=== PATIENT | female | born 1980 | race Caucasian/White ===

== ENCOUNTER 2017-12-16 12:17 | Emergency (ER) | payer OTHER ==
[2017-12-16] MEDS ORDERED: PROVENTIL 2.5 MG/3 ML NEB IH ONE ×2 (12:43→12:53)
--- NOTE | 2017-12-16 12:50 | ERPHSYRPT ---
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 is 11 wks and states she has been weak and run down this . denies any pain Triage Nursing Assessment: ambulated to room per self. skin w/d, color pale, resp only slightly labored after walking to room. states she does feel better now but wants to get checked out since she is . 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 She denies chest pain, cough, coughing spell, fever, chills, other complaints, no abdominal pain, cramps, or bleeding, no calf, pain, swelling, edema. She has a history of childhood asthma, did not require recent treatment, she has not been taking any medications, she is nauseated, vomited once this morning, she attributed it to her . Timing/Duration: hour(s) (2) Activities at Onset: none Severity of Dyspnea-Max: mild Severity of Dyspnea-Current: mild Possible Cause: no prior episodes Modifying Factors: Improves With: nothing Associated Symptoms: denies symptoms Allergies/Adverse Reactions: No Known Drug Allergies Allergy (Unverified 11/22/14 10:27) Home Medications: Norgestimate-Ethinyl Estradiol [Ortho Tri-Cyclen Lo] 1 each PO DAILY 10/08/11 [ History] Hx Tetanus, Diphtheria Vaccination/Date Given: No Hx Influenza Vaccination/Date Given: No Hx Pneumococcal Vaccination/Date Given: No - Review of Systems Constitutional: No Symptoms Respiratory: Dyspnea, No Cough Cardiac: No Chest Pain, No Edema All Other Systems: Reviewed and Negative - Past Medical History Pertinent Past Medical History: Yes ENT History: Other - Past Surgical History Past Surgical History: Yes Female Surgical History: Section Other Surgical History: TONSILLECTOMY. BOTTOM DENTURES (TOOTH EXTRACTION) - Social History Smoking Status: Never smoker Exposure to second hand smoke: No Drug Use: none Patient Lives Alone: No - Female History Hx Now: Yes (11 weeks) - Nursing Vital Signs Nursing Vital Signs: Initial Vital Signs Temperature 98 F 12/16/17 12:24 Pulse Rate 71 12/16/17 12:24 Respiratory Rate 20 12/16/17 12:24 Blood Pressure 89/70 12/16/17 12:24 O2 Sat by Pulse Oximetry 96 12/16/17 12:24 Pain Scale Pain Intensity 0 - Physical Exam General Appearance: no apparent distress Eye Exam: eyes nml inspection Ears, Nose, Throat Exam: normal ENT inspection, normal pharynx Neck Exam: normal inspection, non-tender, supple, No carotid bruit, No JVD Respiratory Exam: normal breath sounds, lungs clear, airway intact, No chest tenderness Cardiovascular/Chest Exam: normal heart sounds, regular rate/rhythm, normal peripheral pulses, No murmur, No edema, No JVD Abdominal/Gastrointestinal Exam: soft, normal bowel sounds, No tenderness, No distention, No mass, No guarding, No rebound Extremity Exam: non-tender, no calf tenderness, no pedal edema, No oracio's sign Peripheral Pulses Exam: dorsalis-pedis (R): 3+, dorsalis-pedis (L): 3+ Neurologic Exam: alert, oriented x 3, normal mood/affect Skin Exam: normal color, warm, dry, No rash Lymphatic Exam: No adenopathy SpO2 Interpretation: normal SpO2: 96 Oxygen Delivery: Room Air - Course Nursing assessment & vital signs reviewed: Yes EKG Interpreted by Me: RATE (71/min), NORMAL AXIS, NORMAL INTERVALS, Right Bundle Branch Block (incomplete), Non-specific ST Changes, Other (14:49PM: normal Ek/min, NSR) - Radiology Exams Chest X-ray Interpretation: Interpreted by me, Negative Ordered Tests: Active Orders 24 hr Category Date Time Status EKG-ER Only STAT Care 12/16/17 13:14 Active EKG-ER Only STAT Care 12/16/17 14:40 Active Orthostatic Vital Signs STAT Care 12/16/17 15:55 Ordered CHEST 1 VIEW (PORTABLE) Stat Exams 12/16/17 13:32 Taken CBC W DIFF Stat Lab 12/16/17 12:45 Completed CMP Stat Lab 12/16/17 12:45 Completed D-DIMER QUANTITATION Stat Lab 12/16/17 12:45 Completed HCG, Quantitative (Inhouse) Stat Lab 12/16/17 12:45 Completed MAGNESIUM Stat Lab 12/16/17 12:45 Completed NT PRO BNP Stat Lab 12/16/17 12:45 Completed PROTIME WITH INR Stat Lab 12/16/17 12:45 Completed TROPONIN Q3H Lab 12/16/17 12:45 Completed TROPONIN Q3H Lab 12/16/17 15:08 Received TROPONIN Q3H Lab 12/16/17 18:45 Ordered TROPONIN Q3H Lab 12/16/17 21:45 Ordered TROPONIN Q3H Lab 12/17/17 00:45 Ordered TSH, 3RD Generation Routine Lab 12/16/17 12:45 Completed Respiratory Nebulizer STAT RT 12/16/17 12:44 Active Medication Summary Discontinued Medications Generic Name Dose Route Start Last Admin Trade Name Freq PRN Reason Stop Dose Admin Albuterol Sulfate 2.5 mg 12/16/17 12:43 12/16/17 12:55 Proventil 2.5 Mg/3 Ml Neb IH 12/16/17 12:44 2.5 mg STAT ONE Administration Albuterol Sulfate Confirm 12/16/17 12:53 Proventil 2.5 Mg/3 Ml Neb Administered 12/16/17 12:54 Dose 2.5 mg IH .STK-MED ONE Lab/Rad Data: Laboratory Result Diagrams 12/16/17 12:45 12/16/17 12:45 Laboratory Results 12/16/17 12/16/17 12/16/17 Range/Units 12:45 12:45 12:45 WBC (4.0-10.5) K/mm3 RBC (4.1-5.4) M/mm3 Hgb (12.0-16.0) gm/dl Hct (35-47) % MCV (78-100) fl MCH (26-32) pg MCHC (32-36) g/dl RDW (11.5-14.0) % Plt Count (150-450) K/mm3 MPV (6-9.5) fl Gran % (36.0-66.0) % Eos # (Auto) (0-0.5) Absolute Lymphs (auto) (1.0-4.6) Absolute Monos (auto) (0.0-1.3) Lymphocytes % (24.0-44.0) % Monocytes % (0.0-12.0) % Eosinophils % (0.00-5.0) % Basophils % (0.0-0.4) % Absolute Granulocytes (1.4-6.9) Basophils # (0-0.4) PT 10.8 (9.95-12.35) SECONDS INR 0.93 (0.8-3.0) D-Dimer 475 (215-500) ng/mL Sodium 135 L (137-145) mmol/L Potassium 4.0 (3.5-5.1) mmol/L Chloride 102 (98-107) mmol/L Carbon Dioxide 24 (22-30) mmol/L Anion Gap 12.6 (5-15) MEQ/L BUN 11 (7-17) mg/dL Creatinine 0.56 (0.52-1.04) mg/dL Estimated GFR > 60.0 ML/MIN Glucose 116 H (74-106) mg/dL Calcium 9.5 (8.4-10.2) mg/dL Magnesium 1.7 (1.6-2.3) mg/dL Total Bilirubin 0.30 (0.2-1.3) mg/dL AST 18 (14-36) U/L ALT 11 (0-35) U/L Alkaline Phosphatase 50 (38-126) U/L Troponin I < 0.012 (0.000-0.034) ng/mL NT-Pro-B Natriuret Pep 218 (0-450) pg/mL Serum Total Protein 7.2 (6.3-8.2) g/dL Albumin 4.1 (3.5-5.0) g/dL TSH 3rd Generation 1.390 (0.47-4.68) mIU/L Beta HCG, Quant [id number] mIU/ml 12/16/17 Range/Units 12:45 WBC 11.4 H (4.0-10.5) K/mm3 RBC 3.98 L (4.1-5.4) M/mm3 Hgb 12.6 (12.0-16.0) gm/dl Hct 36.4 (35-47) % MCV 91.5 (78-100) fl MCH 31.6 (26-32) pg MCHC 34.6 (32-36) g/dl RDW 12.5 (11.5-14.0) % Plt Count 282 (150-450) K/mm3 MPV 9.1 (6-9.5) fl Gran % 73.6 H (36.0-66.0) % Eos # (Auto) 0.05 (0-0.5) Absolute Lymphs (auto) 2.18 (1.0-4.6) Absolute Monos (auto) 0.76 (0.0-1.3) Lymphocytes % 19.2 L (24.0-44.0) % Monocytes % 6.7 (0.0-12.0) % Eosinophils % 0.4 (0.00-5.0) % Basophils % 0.1 (0.0-0.4) % Absolute Granulocytes 8.38 H (1.4-6.9) Basophils # 0.01 (0-0.4) PT (9.95-12.35) SECONDS INR (0.8-3.0) D-Dimer (215-500) ng/mL Sodium (137-145) mmol/L Potassium (3.5-5.1) mmol/L Chloride (98-107) mmol/L Carbon Dioxide (22-30) mmol/L Anion Gap (5-15) MEQ/L BUN (7-17) mg/dL Creatinine (0.52-1.04) mg/dL Estimated GFR ML/MIN Glucose (74-106) mg/dL Calcium (8.4-10.2) mg/dL Magnesium (1.6-2.3) mg/dL Total Bilirubin (0.2-1.3) mg/dL AST (14-36) U/L ALT (0-35) U/L Alkaline Phosphatase (38-126) U/L Troponin I (0.000-0.034) ng/mL NT-Pro-B Natriuret Pep (0-450) pg/mL Serum Total Protein (6.3-8.2) g/dL Albumin (3.5-5.0) g/dL TSH 3rd Generation (0.47-4.68) mIU/L Beta HCG, Quant mIU/ml - Progress Progress: improved Air Movement: good Progress Note: 12/16/17 15:56 She feels comfortable lying, still c/o dyspnea on exertion, Albuterol did not make any difference. She remains afebrile, denies chest pain, tightness or pressure, no nausea, dizziness, and not orthostatic, stable. I called Dr Porter, discussed her case in details, he agreed with our plan to discharge her to follow up with Dr Ventura next week, to initiate outpatient workup. I also advised her to return immediately if any changes, chest pain, resting dyspnea, dizziness, weakness, or severe vomiting. Blood Culture(s) Obtained: No Antibiotics given: No Discussed with Dr.: May Will see patient in: office Counseled pt/family regarding: lab results, diagnosis, need for follow-up, rad results - Departure Time of Disposition: 15:59 Departure Disposition: Home Clinical Impression: Dyspnea, unspecified Qualifiers: Dyspnea type: dyspnea on exertion Qualified Code(s): R06.09 - Other forms of dyspnea Condition: Stable Critical Care Time: No Referrals: HEAVEN VENTURA MD [Primary Care Provider] - Instructions: Shortness of Breath (Dyspnea) (DC) Additional Instructions: Rest x 2-3 days, and follow up with your physician next week, also keep appointment with your smoke tester next ! Return if chest pain, severe dizziness, vomiting, or resting shortness of breath!
[2017-12-16 13:05] LABS: BASOPHIL % 0.1 % (0.0-0.4); Basophil (Absolute #) 0.01 (0-0.4); Eosinophil % 0.4 % (0.00-5.0); Eosinophil (Absolute #) 0.05 (0-0.5); Granulocyte Absolute (ANC) 8.38 (1.4-6.9); Granulocytes % 73.6 % (36.0-66.0); Hematocrit 36.4 % (35-47); Hemoglobin 12.6 gm/dl (12.0-16.0); Lymphocyte (Absolute #) 2.18 (1.0-4.6); Lymphocytes % 19.2 % (24.0-44.0); Mean Cell Volume 91.5 fl (78-100); Mean Corpuscular Hgb Concent. 34.6 g/dl (32-36); Mean Platelet Volume 9.1 fl (6-9.5); Monocyte (Absolute #) 0.76 (0.0-1.3); Monocytes % 6.7 % (0.0-12.0); Platelet Count 282 K/mm3 (150-450); Red Blood Count 3.98 M/mm3 (4.1-5.4); Red Cell Distribution Width 12.5 % (11.5-14.0); White Blood Count 11.4 K/mm3 (4.0-10.5)
[2017-12-16 13:13] LABS: INR 0.93 (0.8-3.0)
[2017-12-16 13:14] LABS: Mean Corpuscular Hemoglobin 31.6 pg (26-32)
[2017-12-16 13:20] LABS: ALBUMIN 4.1 g/dL (3.5-5.0); ALKALINE PHOSPHATASE 50 U/L (38-126); ANION GAP 12.6 MEQ/L (5-15); BLOOD UREA NITROGEN 11 mg/dL (7-17); CHLORIDE 102 mmol/L (98-107); Calcium 9.5 mg/dL (8.4-10.2); Carbon Dioxide 24 mmol/L (22-30); Creatinine 1 0.56 mg/dL (0.52-1.04); Glucose 116 mg/dL (74-106); SGOT/AST 18 U/L (14-36); SGPT/ALT 11 U/L (0-35); SODIUM 135 mmol/L (137-145); Total Protein 7.2 g/dL (6.3-8.2)
[2017-12-16 13:28] LABS: NT PRO BNP 218 pg/mL (0-450)
[2017-12-16 13:57] LABS: TROPONIN < 0.012 ng/mL (0.000-0.034)
[2017-12-16 14:01] LABS: HCG, Quantitative (Inhouse) 102130 mIU/ml
[2017-12-16 15:59] VITALS: BP 99/60; PULSE 98
[2017-12-16 16:01] VITALS: O2SAT 96
--- NOTE | 2017-12-16 21:45 | XRAY ---
Indication: Dyspnea. Comparison: None Portable chest demonstrates normal heart, lungs, and bony thorax.
== END 2017-12-16 16:08 | disposition home or self-care (01) ==
LOC: ED 12:17
DX: O26.891 Other specified pregnancy related conditions, first trimester (principal); Z3A.11 11 weeks gestation of pregnancy; R06.00 Dyspnea, unspecified
CPT/HCPCS: 36415; 71045; 80053; 83735; 83880; 84443; 84484; 84702; 85025; 85379; 85610; 93005; 94640; 99284; J7609; A9270-GY

== ENCOUNTER 2018-01-25 12:14 | Emergency (ER) | payer OTHER ==
--- NOTE | 2018-01-25 12:51 | ERPHSYRPT ---
- History of Present Illness Time Seen by Provider: 01/25/18 12:35 Source: patient, family Exam Limitations: no limitations Patient Subjective Stated Complaint: cough and congerstion.. coughed until vomited today.. went to [facility] but they sent her here to the ER since she was . they do not feel like they need to be in ER reassured. Triage Nursing Assessment: alert and in n o distress.. cough that is productive with slightly green. audible nasal congestion. seen at OB yesterday and he did not address the problem. lungs clear bilateral. Physician History: 37 y/o white female, who is 17 weeks , presents with coughing for greater than 4 hours. coughing today frequently enough to gag and vomit. she is not nauseated. pt seen by pcp yesterday and she felt pcp did not address her concerns. pt denies fever. denies abd pain. pt did not use any otc products. she had not coughed once during interview Timing/Duration: today Cough Quality/Degree: dry cough Possible Cause: occasional episodes Modifying Factors: Improves With: nothing Associated Symptoms: cough, No fever, No chills, No chest pain/soreness Allergies/Adverse Reactions: No Known Drug Allergies Allergy (Unverified 11/22/14 10:27) Home Medications: Norgestimate-Ethinyl Estradiol [Ortho Tri-Cyclen Lo] 1 each PO DAILY 10/08/11 [ History] Hx Tetanus, Diphtheria Vaccination/Date Given: No Hx Influenza Vaccination/Date Given: No Hx Pneumococcal Vaccination/Date Given: No - Review of Systems Constitutional: No Symptoms, No Fever, No Chills Eyes: No Symptoms, No Eye Pain Ears, Nose, & Throat: No Symptoms, No Ear Pain Respiratory: Cough, No Dyspnea, No Dyspnea on Exertion (HARRIS), No Stridor, No Wheezing Cardiac: No Symptoms, No Chest Pain, No Syncope Abdominal/Gastrointestinal: No Symptoms, No Abdominal Pain, No Nausea, No Vomiting, No Diarrhea Genitourinary Symptoms: No Symptoms, No Dysuria, No Frequency, No Hematuria Musculoskeletal: No Symptoms, No Back Pain, No Neck Pain, No Fall, No Injury Skin: No Symptoms Neurological: No Symptoms Psychological: No Symptoms Endocrine: No Symptoms Hematologic/Lymphatic: No Symptoms Immunological/Allergic: No Symptoms All Other Systems: Reviewed and Negative - Past Medical History Pertinent Past Medical History: Yes Neurological History: No Pertinent History ENT History: Other Cardiac History: No Pertinent History Respiratory History: No Pertinent History Endocrine Medical History: No Pertinent History Musculoskeletal History: No Pertinent History GI Medical History: No Pertinent History History: No Pertinent History Psycho-Social History: No Pertinent History Female Reproductive Disorders: No Pertinent History - Past Surgical History Past Surgical History: Yes Cardiac: No Pertinent History Respiratory: No Pertinent History Gastrointestinal: No Pertinent History Genitourinary: No Pertinent History Musculoskeletal: No Pertinent History Female Surgical History: Section Other Surgical History: TONSILLECTOMY. BOTTOM DENTURES (TOOTH EXTRACTION) - Social History Smoking Status: Never smoker Exposure to second hand smoke: No Drug Use: none Patient Lives Alone: No - Female History Hx Now: Yes Gestational Age: 17 weeks - Nursing Vital Signs Nursing Vital Signs: Initial Vital Signs Temperature 98.0 F 01/25/18 12:30 Pulse Rate 93 H 01/25/18 12:30 Respiratory Rate 18 01/25/18 12:30 Blood Pressure 104/63 01/25/18 12:30 O2 Sat by Pulse Oximetry 100 01/25/18 12:30 Pain Scale Pain Intensity 0 - Physical Exam General Appearance: no apparent distress, alert, anxiety Eye Exam: PERRL/EOMI, eyes nml inspection Ears, Nose, Throat Exam: normal ENT inspection, TMs normal Neck Exam: normal inspection, non-tender, supple, full range of motion Respiratory Exam: normal breath sounds, lungs clear, No chest tenderness, No respiratory distress, No airway intact, No rhonchi, No wheezing, No stridor Cardiovascular Exam: regular rate/rhythm, normal heart sounds, normal peripheral pulses Gastrointestinal/Abdomen Exam: soft, normal bowel sounds, No tenderness, No guarding, No rebound Pelvic Exam: not done Rectal Exam: not done Back Exam: normal inspection, normal range of motion, No CVA tenderness, No vertebral tenderness Extremity Exam: normal inspection, normal range of motion, pelvis stable Neurologic Exam: alert, oriented x 3, cooperative, 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 II-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 tested Skin Exam: normal color, warm, dry Lymphatic Exam: adenopathy SpO2 Interpretation: normal SpO2: 100 Oxygen Delivery: Room Air - Course Nursing assessment & vital signs reviewed: Yes Ordered Tests: Medication Summary Discontinued Medications Generic Name Dose Route Start Last Admin Trade Name Freq PRN Reason Stop Dose Admin Acetaminophen/Codeine Phosphate 5 ml 01/25/18 12:54 01/25/18 13:02 Tylenol W/ Codeine 5 Ml Ud Cup PO 01/25/18 12:55 5 ml STAT ONE Administration Acetaminophen/Codeine Phosphate Confirm 01/25/18 13:01 Tylenol W/ Codeine 5 Ml Ud Cup Administered 01/25/18 13:02 Dose 5 ml .ROUTE .STK-MED ONE - Progress Progress: unchanged Air Movement: good Progress Note: 01/25/18 13:12 pts fht 148. had discussion of risks and benefits with both pt and spouse re a single use of a codeine based cough suppressant. they opt for a single dose Counseled pt/family regarding: diagnosis, need for follow-up - Departure Time of Disposition: 13:15 Departure Disposition: Home Clinical Impression: Cough Condition: Stable Critical Care Time: No Referrals: HEAVEN VENTURA MD [Primary Care Provider] - Additional Instructions: may use benadryl elixir and robitussin dm over the counter cough suppressant medications per directions. follow up with prepress technician tomorrow for further management
[2018-01-25] MEDS ORDERED: TYLENOL W/ CODEINE 5 ML UD CUP PO ONE (12:54)
[2018-01-25] MEDS ORDERED: TYLENOL W/ CODEINE 5 ML UD CUP ONE (13:01)
[2018-01-25 13:28] VITALS: BP 107/64; PULSE 86; O2SAT 96
== END 2018-01-25 13:28 | disposition home or self-care (01) ==
LOC: ED 12:14
DX: O26.892 Other specified pregnancy related conditions, second trimester (principal); Z3A.17 17 weeks gestation of pregnancy; R05 Cough
CPT/HCPCS: 99283; A9270-GY

== ENCOUNTER 2018-07-19 19:14 | Emergency (ER) | payer OTHER ==
[2018-07-19 19:47] LABS: BASOPHIL % 0.2 % (0.0-0.4); Basophil (Absolute #) 0.02 (0-0.4); Eosinophil % 2.9 % (0.00-5.0); Eosinophil (Absolute #) 0.27 (0-0.5); Granulocyte Absolute (ANC) 5.69 (1.4-6.9); Hematocrit 40.9 % (35-47); Hemoglobin 13.5 gm/dl (12.0-16.0); Lymphocyte (Absolute #) 2.73 (1.0-4.6); Lymphocytes % 29.2 % (24.0-44.0); Mean Cell Volume 97.8 fl (78-100); Mean Corpuscular Hemoglobin 32.3 pg (26-32); Mean Platelet Volume 8.8 fl (6-9.5); Monocyte (Absolute #) 0.63 (0.0-1.3); Monocytes % 6.7 % (0.0-12.0); Platelet Count 380 K/mm3 (150-450); Red Blood Count 4.18 M/mm3 (4.1-5.4); Red Cell Distribution Width 11.6 % (11.5-14.0); White Blood Count 9.3 K/mm3 (4.0-10.5)
[2018-07-19 19:55] LABS: ALBUMIN 3.9 g/dL (3.5-5.0); ALKALINE PHOSPHATASE 133 U/L (38-126); AMYLASE 89 U/L (30-110); BLOOD UREA NITROGEN 19 mg/dL (7-17); CHLORIDE 104 mmol/L (98-107); Calcium 9.3 mg/dL (8.4-10.2); Carbon Dioxide 27 mmol/L (22-30); Creatinine 1 0.97 mg/dL (0.52-1.04); Glucose 88 mg/dL (74-106); LIPASE 118 U/L (23-300); Potassium 4.3 mmol/L (3.5-5.1); SGOT/AST 21 U/L (14-36); SGPT/ALT 17 U/L (0-35); SODIUM 140 mmol/L (137-145); Total Protein 7.3 g/dL (6.3-8.2)
[2018-07-19 20:13] VITALS: O2SAT 99
[2018-07-19 20:53] LABS: Appearance SLIGHTLY CLOUDY (CLEAR); Bacteria RARE /HPF (NEGATIVE); Bilirubin NEGATIVE (NEGATIVE); Blood LARGE Ery/ul (0-5); Glucose NEGATIVE (NEGATIVE); Ketones NEGATIVE (NEGATIVE); Leukocyte Esterase MODERATE (NEGATIVE); Mucus SLIGHT /HPF (NEGATIVE); Nitrite NEGATIVE (NEGATIVE); Protein,Urine Dip 30 (Negative); Specific Gravity 1.021 (1.005-1.025); Urobilinogen NEGATIVE mg/dL (0-1); WBC 26-50 /HPF (0-5)
[2018-07-19 20:54] LABS: RBC >101 /HPF (0-2)
[2018-07-19] MEDS ORDERED: Omnicef 125 MG/5 ML SUSP PO ONE (22:08)
[2018-07-19] MEDS ORDERED: Omnicef 125 MG/5 ML SUSP ONE (22:10)
--- NOTE | 2018-07-19 22:10 | ERPHSYRPT ---
- History of Present Illness Historian: patient Exam Limitations: no limitations Patient Subjective Stated Complaint: pt is alert and oriented. pt is ambulatory with a steady gait. pt comes in 16 days post section with abdominal pain above the incision site. pt incision is intact, not drainage, no redness, no open areas, no swelling noted. pt has tenderness to her lower abdomen. pt uturus felt two fingerbreaths below the umbilicus. pt states she's having dark red vaginal bleeding only slightly increased from her normal bleeding. Triage Nursing Assessment: see above Physician History: Pt is a 37 y/o female that is s/p recently. She presented to the ED with complains of abdominal pain. Pt denies vaginal discharge, no pain around the incision. No F/C/S. Pt denies SOB or cough. No dysuria, frequency or urgency. Timing/Duration: day(s) Activities at Onset: none Quality: aching Abdominal Pain Onset Location: periumbilical Pain Radiation: no radiation Severity of Pain-Max: moderate Severity of Pain-Current: moderate Modifying Factors: Improves With: analgesics Associated Symptoms: denies symptoms Previous symptoms: no prior history Allergies/Adverse Reactions: No Known Drug Allergies Allergy (Unverified 11/22/14 10:27) Hx Tetanus, Diphtheria Vaccination/Date Given: Yes (2018) Hx Influenza Vaccination/Date Given: No Hx Pneumococcal Vaccination/Date Given: No Immunizations Up to Date: Yes - Review of Systems Constitutional: No Fever, No Chills Respiratory: No Cough, No Dyspnea Cardiac: No Chest Pain, No Edema, No Syncope Abdominal/Gastrointestinal: Abdominal Pain Genitourinary Symptoms: No Dysuria Musculoskeletal: No Back Pain, No Neck Pain Neurological: No Dizziness, No Focal Weakness, No Sensory Changes - Past Medical History Pertinent Past Medical History: Yes Neurological History: No Pertinent History ENT History: Other Cardiac History: No Pertinent History Respiratory History: No Pertinent History Endocrine Medical History: No Pertinent History Musculoskeletal History: No Pertinent History GI Medical History: No Pertinent History History: No Pertinent History Psycho-Social History: No Pertinent History Female Reproductive Disorders: No Pertinent History - Past Surgical History Past Surgical History: Yes Neuro Surgical History: No Pertinent History Cardiac: No Pertinent History Respiratory: No Pertinent History Gastrointestinal: No Pertinent History Genitourinary: No Pertinent History Musculoskeletal: No Pertinent History Female Surgical History: Section Other Surgical History: TONSILLECTOMY. BOTTOM DENTURES (TOOTH EXTRACTION) - Social History Smoking Status: Never smoker Exposure to second hand smoke: No Drug Use: none Patient Lives Alone: No - Female History Hx Now: No - Nursing Vital Signs Nursing Vital Signs: Initial Vital Signs Pulse Rate 61 07/19/18 19:21 Respiratory Rate 18 07/19/18 19:21 Blood Pressure 110/73 07/19/18 19:21 O2 Sat by Pulse Oximetry 100 07/19/18 19:21 Pain Scale Pain Intensity 7 - Physical Exam General Appearance: no apparent distress, alert Eye Exam: PERRL/EOMI, eyes nml inspection Ears, Nose, Throat Exam: normal ENT inspection, pharynx normal, moist mucous membranes Neck Exam: normal inspection, non-tender, supple, full range of motion Respiratory Exam: normal breath sounds, lungs clear, No respiratory distress Cardiovascular Exam: regular rate/rhythm, normal heart sounds Gastrointestinal/Abdomen Exam: soft, normal bowel sounds, other (tenderness to palpation in the periumbilical area.) Pelvic Exam: not done SpO2: 99 - Course Nursing assessment & vital signs reviewed: Yes - CT Exams Abdomen/Pelvis CT Interpretation: Negative (No cholilithiasis, no appendicitis. Non obstructing kidney stones.) Ordered Tests: Active Orders 24 hr Category Date Time Status ABDOMEN AND PELVIS W/0 CONTRAS [CT] Stat Exams 07/19/18 20:50 Taken AMYLASE Stat Lab 07/19/18 19:38 Completed CBC W DIFF Stat Lab 07/19/18 19:38 Completed CMP Stat Lab 07/19/18 19:38 Completed CULTURE,URINE Stat Lab 07/19/18 20:46 Received LIPASE Stat Lab 07/19/18 19:38 Completed Lactic Acid Stat Lab 07/19/18 19:50 Completed UA W/RFX UR CULTURE Stat Lab 07/19/18 20:46 Completed Lab/Rad Data: Laboratory Result Diagrams 07/19/18 19:38 07/19/18 19:38 Laboratory Results 07/19/18 07/19/18 07/19/18 Range/Units 20:46 19:50 19:38 WBC (4.0-10.5) K/mm3 RBC (4.1-5.4) M/mm3 Hgb (12.0-16.0) gm/dl Hct (35-47) % MCV (78-100) fl MCH (26-32) pg MCHC (32-36) g/dl RDW (11.5-14.0) % Plt Count (150-450) K/mm3 MPV (6-9.5) fl Gran % (36.0-66.0) % Eos # (Auto) (0-0.5) Absolute Lymphs (auto) (1.0-4.6) Absolute Monos (auto) (0.0-1.3) Lymphocytes % (24.0-44.0) % Monocytes % (0.0-12.0) % Eosinophils % (0.00-5.0) % Basophils % (0.0-0.4) % Absolute Granulocytes (1.4-6.9) Basophils # (0-0.4) Sodium 140 (137-145) mmol/L Potassium 4.3 (3.5-5.1) mmol/L Chloride 104 (98-107) mmol/L Carbon Dioxide 27 (22-30) mmol/L Anion Gap 12.0 (5-15) MEQ/L BUN 19 H (7-17) mg/dL Creatinine 0.97 (0.52-1.04) mg/dL Estimated GFR > 60.0 ML/MIN Glucose 88 (74-106) mg/dL Lactic Acid 1.1 (0.4-2.0) Calcium 9.3 (8.4-10.2) mg/dL Total Bilirubin 0.40 (0.2-1.3) mg/dL AST 21 (14-36) U/L ALT 17 (0-35) U/L Alkaline Phosphatase 133 H (38-126) U/L Serum Total Protein 7.3 (6.3-8.2) g/dL Albumin 3.9 (3.5-5.0) g/dL Amylase 89 (30-110) U/L Lipase 118 (23-300) U/L Urine Color YELLOW (YELLOW) Urine Appearance SLIGHTLY CLOUDY (CLEAR) Urine pH 5.0 (5-6) Ur Specific [place] 1.021 (1.005-1.025) Urine Protein 30 (Negative) Urine Ketones NEGATIVE (NEGATIVE) Urine Blood LARGE (0-5) Mynor/ul Urine Nitrite NEGATIVE (NEGATIVE) Urine Bilirubin NEGATIVE (NEGATIVE) Urine Urobilinogen NEGATIVE (0-1) mg/dL Ur Leukocyte Esterase MODERATE (NEGATIVE) Urine WBC (Auto) 26-50 (0-5) /HPF Urine RBC (Auto) >101 (0-2) /HPF U Epithel Cells (Auto) NONE (FEW) /HPF Urine Bacteria (Auto) RARE (NEGATIVE) /HPF Unidentified Crystals 2-5 (NEGATIVE) /HPF Urine Mucus (Auto) SLIGHT (NEGATIVE) /HPF Urine Culture Reflexed YES (NO) Urine Glucose NEGATIVE (NEGATIVE) mg/dL 07/19/18 Range/Units 19:38 WBC 9.3 (4.0-10.5) K/mm3 RBC 4.18 (4.1-5.4) M/mm3 Hgb 13.5 (12.0-16.0) gm/dl Hct 40.9 (35-47) % MCV 97.8 (78-100) fl MCH 32.3 H (26-32) pg MCHC 33.0 (32-36) g/dl RDW 11.6 (11.5-14.0) % Plt Count 380 (150-450) K/mm3 MPV 8.8 (6-9.5) fl Gran % 61.0 (36.0-66.0) % Eos # (Auto) 0.27 (0-0.5) Absolute Lymphs (auto) 2.73 (1.0-4.6) Absolute Monos (auto) 0.63 (0.0-1.3) Lymphocytes % 29.2 (24.0-44.0) % Monocytes % 6.7 (0.0-12.0) % Eosinophils % 2.9 (0.00-5.0) % Basophils % 0.2 (0.0-0.4) % Absolute Granulocytes 5.69 (1.4-6.9) Basophils # 0.02 (0-0.4) Sodium (137-145) mmol/L Potassium (3.5-5.1) mmol/L Chloride (98-107) mmol/L Carbon Dioxide (22-30) mmol/L Anion Gap (5-15) MEQ/L BUN (7-17) mg/dL Creatinine (0.52-1.04) mg/dL Estimated GFR ML/MIN Glucose (74-106) mg/dL Lactic Acid (0.4-2.0) Calcium (8.4-10.2) mg/dL Total Bilirubin (0.2-1.3) mg/dL AST (14-36) U/L ALT (0-35) U/L Alkaline Phosphatase (38-126) U/L Serum Total Protein (6.3-8.2) g/dL Albumin (3.5-5.0) g/dL Amylase (30-110) U/L Lipase (23-300) U/L Urine Color (YELLOW) Urine Appearance (CLEAR) Urine pH (5-6) Ur Specific [place] (1.005-1.025) Urine Protein (Negative) Urine Ketones (NEGATIVE) Urine Blood (0-5) Mynor/ul Urine Nitrite (NEGATIVE) Urine Bilirubin (NEGATIVE) Urine Urobilinogen (0-1) mg/dL Ur Leukocyte Esterase (NEGATIVE) Urine WBC (Auto) (0-5) /HPF Urine RBC (Auto) (0-2) /HPF U Epithel Cells (Auto) (FEW) /HPF Urine Bacteria (Auto) (NEGATIVE) /HPF Unidentified Crystals (NEGATIVE) /HPF Urine Mucus (Auto) (NEGATIVE) /HPF Urine Culture Reflexed (NO) Urine Glucose (NEGATIVE) mg/dL - Progress Progress: unchanged Progress Note: Pt is a 37 y/o female, with abdominal pain. Labs showed mildly elevated Alk phos, and UTI. CT was negative for Appendicitis, or cholilithiasis. Pt does have non obstructing kidney stones. Omnicef 300mg will be given in the ER, and prescription will be e-scribed to the pharmacy. Pt should f/u with her PCP. 07/19/18 22:07 Will see patient in: office Counseled pt/family regarding: lab results, diagnosis, need for follow-up, rad results - Departure Time of Disposition: 22:10 Departure Disposition: Home Clinical Impression: UTI (urinary tract infection) Condition: Stable Critical Care Time: No Referrals: HEAVEN VENTURA MD [Primary Care Provider] - Additional Instructions: F/u with PCP. Take ABX as ordered. Prescriptions: Cefdinir [Omnicef] 300 mg PO BID 7 Days #14 capsule
[2018-07-19 22:17] VITALS: BP 100/59; PULSE 66
--- NOTE | 2018-07-20 09:17 | XRAY ---
Indication: Abdominal pain. Status post with 16 days ago. Multiple contiguous axial images obtained through the abdomen and pelvis without contrast as ordered. Comparison: None Lung bases demonstrates left lower lobe calcified granuloma. No infiltrate or effusion. Heart is not enlarged. Stomach is distended with food. Noncontrasted bowel loops appear nonobstructed. Normal appendix. Moderate diffuse scattered colonic fecal debris throughout including rectum. No free fluid/air. Prominent uterus from recent . 2 nonobstructing micro-calculi in each kidney, largest right lower pole measuring 3-4 mm. Remaining liver, gallbladder, pancreas, spleen, adrenal glands, kidneys, ureters, bladder, uterus, and aorta appear unremarkable for noncontrast exam. Osseous structures intact. Impression: 1. Fecal stasis without obstruction. 2. Nonobstructing bilateral renal micro-calculi. 3. Prominent uterus from recent . CT DI 13.07
== END 2018-07-19 22:21 | disposition home or self-care (01) ==
LOC: ED 19:14
DX: N39.0 Urinary tract infection, site not specified (principal)
CPT/HCPCS: 36415; 74176; 80053; 81001; 82150; 83605; 83690; 85025; 87086; 99284; A9270-GY

== ENCOUNTER 2018-11-10 15:53 | Emergency (ER) | payer OTHER ==
[2018-11-10 17:30] VITALS: BP 95/54; PULSE 61; O2SAT 97
--- NOTE | 2018-11-10 17:48 | ERPHSYRPT ---
- History of Present Illness Source: patient Exam Limitations: no limitations Patient Subjective Stated Complaint: pt here for a splinter under her nail to right hand about 230 today Triage Nursing Assessment: pt alert, walked in , resp easy, skin w/d/p, has splinter under nail bed, no bleeding or reddness noted Physician History: Pt is a 37 y/o female that was reaching above the kitchen cabinets in her home, and got a splinter stuck under her nail of the third digit on the R hand. Pt denies all complains, but pain in that finger. Occurred: just prior to arrival Quality: constant Severity of Pain-Max: mild Severity of Pain-Current: mild Extremities Pain Location: 3rd finger: right (splinter under the nail) Modifying Factors: Improves With: nothing Associated Symptoms: none Allergies/Adverse Reactions: No Known Drug Allergies Allergy (Unverified 11/22/14 10:27) Home Medications: No Reportable Medications [No Reported Medications] 11/10/18 [History] Hx Tetanus, Diphtheria Vaccination/Date Given: Yes (2017) Hx Influenza Vaccination/Date Given: No Hx Pneumococcal Vaccination/Date Given: No Immunizations Up to Date: No - Review of Systems Constitutional: No Fever, No Chills Musculoskeletal: Other (pain in the third digit where the splinter is lodged.) - Past Medical History Pertinent Past Medical History: No Neurological History: No Pertinent History ENT History: Other Cardiac History: No Pertinent History Respiratory History: No Pertinent History Endocrine Medical History: No Pertinent History Musculoskeletal History: No Pertinent History GI Medical History: No Pertinent History History: No Pertinent History Psycho-Social History: No Pertinent History Female Reproductive Disorders: No Pertinent History - Past Surgical History Past Surgical History: Yes Neuro Surgical History: No Pertinent History Cardiac: No Pertinent History Respiratory: No Pertinent History Gastrointestinal: No Pertinent History Genitourinary: No Pertinent History Musculoskeletal: No Pertinent History Female Surgical History: Section Other Surgical History: TONSILLECTOMY. BOTTOM DENTURES (TOOTH EXTRACTION) - Social History Smoking Status: Never smoker Exposure to second hand smoke: No Drug Use: none Patient Lives Alone: No - Female History Hx Last Menstrual Period: 2017 Hx Now: No - Nursing Vital Signs Nursing Vital Signs: Initial Vital Signs Temperature 97 F 11/10/18 15:59 Pulse Rate 72 11/10/18 15:59 Respiratory Rate 16 11/10/18 15:59 Blood Pressure 121/71 11/10/18 15:59 O2 Sat by Pulse Oximetry 96 11/10/18 15:59 Pain Scale Pain Intensity 3 - Physical Exam General Appearance: alert Eyes, Ears, Nose, Throat Exam: moist mucous membranes Neck Exam: non-tender, supple Hand Exam: nail injury (a splinter is lodged under the nail of the 3rd finger on the R hand.) Neuro/Tendon Exam: normal sensation, normal motor functions SpO2: 97 Procedures - Incision and Drainage Site: removal of splinter from the R middle finger, under the nail. I & D Procedure: betadine prep Progress: The nail was treamed to exopse the splinter end. With a tweezers, the splinter was cought and pulled out. The splinter got out in one unit with no residual pieces. the area was cleaned again with betadine. Pt was educated about keeping the area clean and dry. No ABX was needed. No blood loss, no exposure. Pt tolerated the procedure well. - Progress Progress: improved Discussed with : Jose Will see patient in: office Counseled pt/family regarding: need for follow-up - Departure Departure Disposition: Home Clinical Impression: Splinter hemorrhage under nail Condition: Stable Critical Care Time: No Referrals: HEAVEN VENTURA MD [Primary Care Provider] - Additional Instructions: Keep nail clean and dry
== END 2018-11-10 18:05 | disposition home or self-care (01) ==
LOC: ED 15:53
DX: S60.452A Superficial foreign body of right middle finger, initial encounter (principal)
CPT/HCPCS: 99283

== ENCOUNTER 2022-03-12 18:50 | Emergency (ER) | payer OTHER ==
[2022-03-12] MEDS ORDERED: Zofran 4 MG/2 ML VIAL IV ONE (18:54)
[2022-03-12] MEDS ORDERED: Ativan 2 MG/1 ML VIAL IV ONE (18:54)
--- NOTE | 2022-03-12 18:54 | ERPHSYRPT ---
- History of Present Illness Time Seen by Provider: 03/12/22 18:53 Source: patient, EMS Exam Limitations: no limitations Physician History: This is a 41-year-old white female who at 4:45 PM states that she accidentally took a strip of THC Gummies she thought was a candy. After her consumption she started feeling twitchy and anxious and nervous. Patient states that was not intentional. She is not have any chest pain she is not short of breath. She arrives to the emergency department via ambulance. Patient has a history of breast cancer. Severity of Symptoms-Max: moderate Severity of Symptoms-Current: moderate Suicidal thoughts: ingestion (Accidental/unintentional) Associated Symptoms: agitated, anxiety Previous symptoms: no prior history Allergies/Adverse Reactions: No Known Drug Allergies Allergy (Verified 03/12/22 18:53) Home Medications: Tamoxifen Citrate [Soltamox] 1 tab PO DAILY 03/12/22 [History] Hx Tetanus, Diphtheria Vaccination/Date Given: Yes (2017) Hx Influenza Vaccination/Date Given: No Hx Pneumococcal Vaccination/Date Given: No Travel Risk - International Travel Have you traveled outside of the country in past 3 weeks: No - Coronavirus Screening Are you exhibiting any of the following symptoms?: No Close contact with a COVID-19 positive Pt in past 14-21 Days: No - Past Medical History Pertinent Past Medical History: No Neurological History: No Pertinent History ENT History: Other Cardiac History: No Pertinent History Respiratory History: No Pertinent History Endocrine Medical History: No Pertinent History Musculoskeletal History: No Pertinent History GI Medical History: No Pertinent History History: No Pertinent History Psycho-Social History: No Pertinent History Female Reproductive Disorders: No Pertinent History - Past Surgical History Past Surgical History: Yes Neuro Surgical History: No Pertinent History Cardiac: No Pertinent History Respiratory: No Pertinent History Gastrointestinal: No Pertinent History Genitourinary: No Pertinent History Musculoskeletal: No Pertinent History Female Surgical History: Section Other Surgical History: TONSILLECTOMY. BOTTOM DENTURES (TOOTH EXTRACTION) - Social History Smoking Status: Never smoker Exposure to second hand smoke: No Drug Use: none Patient Lives Alone: No - Review of Systems Constitutional: No Symptoms Eyes: No Symptoms Ears, Nose, & Throat: No Symptoms Respiratory: No Symptoms Cardiac: No Symptoms Abdominal/Gastrointestinal: No Symptoms Genitourinary Symptoms: No Symptoms Musculoskeletal: No Symptoms Skin: No Symptoms Neurological: No Symptoms Psychological: No Symptoms Endocrine: No Symptoms Hematologic/Lymphatic: No Symptoms Immunological/Allergic: No Symptoms All Other Systems: Reviewed and Negative - Nursing Vital Signs Nursing Vital Signs: Initial Vital Signs Temperature 97.4 F 03/12/22 18:54 Pulse Rate 90 03/12/22 18:54 Respiratory Rate 17 03/12/22 18:54 Blood Pressure 125/87 03/12/22 18:54 O2 Sat by Pulse Oximetry 100 03/12/22 18:54 Pain Scale Pain Intensity 0 - Physical Exam General Appearance: no apparent distress, alert, anxiety Eyes, Ears, Nose, Throat Exam: normal ENT inspection, moist mucous membranes Neck Exam: normal inspection, non-tender, supple, full range of motion Respiratory Exam: normal breath sounds, lungs clear, airway intact, No chest tenderness, No respiratory distress Cardiovascular Exam: regular rate/rhythm, normal heart sounds, normal peripheral pulses Gastrointestinal/Abdominal Exam: soft, normal bowel sounds, No tenderness Current Suicidality: denies suicide plan Neurological Exam: alert, normal mood/affect, blockman II-XII nml as tested, oriented x 3, agitated, anxious Appearance: appropriate appearance Behavior/Eye Contact/Speech: alert & cooperative, avoids eye contact Skin Exam: normal color, warm, dry SpO2 Interpretation: normal O2 Delivery: Room Air - Course Nursing assessment & vital signs reviewed: Yes EKG Interpreted by Me: RATE (80), Sinus Rhythm, NORMAL AXIS, NORMAL INTERVALS, NORMAL QRS, NORMAL ST-T, Non-specific ST Changes, Other (No acute ischemic changes present.) Ordered Tests: Active Orders 24 hr Category Date Time Status EKG-ER Only STAT Care 03/12/22 18:54 Active IV Insertion STAT Care 03/12/22 18:54 Active cath [Cath for Specimen-Straight] STAT Care 03/12/22 20:49 Active ACETAMINOPHEN Stat Lab 03/12/22 19:30 Completed CBC W DIFF Stat Lab 03/12/22 19:30 Completed CMP Stat Lab 03/12/22 19:30 Completed ETHYL ALCOHOL Stat Lab 03/12/22 19:30 Completed SALICYLATE Stat Lab 03/12/22 19:30 Completed UA W/RFX CULTURE Stat Lab 03/12/22 20:49 Completed Urine Triage Profile Stat Lab 03/12/22 20:49 Completed Medication Summary Generic Name Dose Route Start Last Admin Trade Name Freq PRN Reason Stop Dose Admin Sodium Chloride 1,000 mls @ 100 mls/hr 03/12/22 19:00 03/12/22 19:12 Sodium Chloride 0.9% 1000 Ml IV 04/11/22 18:59 100 mls/hr .Q10H NITIN Administration Discontinued Medications Generic Name Dose Route Start Last Admin Trade Name Ebq PRN Reason Stop Dose Admin Lorazepam 1 mg 03/12/22 18:54 03/12/22 19:12 Lorazepam 2 Mg/1 Ml 2 Mg Vial IV 03/12/22 18:55 1 mg STAT ONE Administration Lorazepam Confirm 03/12/22 19:10 Lorazepam 2 Mg/1 Ml 2 Mg Vial Administered 03/12/22 19:11 Dose 2 mg .ROUTE .STK-MED ONE Ondansetron HCl 4 mg 03/12/22 18:54 03/12/22 19:12 Ondansetron Hcl 4 Mg/2 Ml Vial IV 03/12/22 18:55 4 mg STAT ONE Administration Ondansetron HCl Confirm 03/12/22 19:10 Ondansetron Hcl 4 Mg/2 Ml Vial Administered 03/12/22 19:11 Dose 4 mg .ROUTE .STK-MED ONE Lab/Rad Data: Laboratory Result Diagrams 03/12/22 19:30 03/12/22 19:30 Laboratory Results 03/12/22 03/12/22 03/12/22 Range/Units 20:49 20:49 19:30 WBC (4.0-10.5) x10^3/uL RBC (4.1-5.4) x10^6/uL Hgb (12.0-16.0) g/dL Hct (35-47) % MCV (78-100) fL MCH (26-32) pg MCHC (32-36) g/dL RDW (11.5-14.0) % Plt Count (150-450) x10^3/uL MPV (7.5-11.0) fL Gran % (36.0-66.0) % Immature Gran % (Auto) (0.00-0.4) % Nucleat RBC Rel Count (0.00-0.1) % Eos # (Auto) (0-0.5) x10^3/uL Immature Gran # (Auto) (0.00-0.03) x10^3u/L Absolute Lymphs (auto) (1.0-4.6) x10^3/uL Absolute Monos (auto) (0.0-1.3) x10^3/uL Absolute Nucleated RBC (0.00-0.01) x10^3u/L Lymphocytes % (24.0-44.0) % Monocytes % (0.0-12.0) % Eosinophils % (0.00-5.0) % Basophils % (0.0-0.4) % Absolute Granulocytes (1.4-6.9) x10^3/uL Basophils # (0-0.4) x10^3/uL Sodium 136 L (137-145) mmol/L Potassium 3.7 (3.5-5.1) mmol/L Chloride 105 (98-107) mmol/L Carbon Dioxide 27 (22-30) mmol/L Anion Gap 8.0 (5-15) MEQ/L BUN 14 (7-17) mg/dL Creatinine 0.87 (0.52-1.04) mg/dL Estimated GFR > 60.0 ML/MIN Glucose 149 H (74-106) mg/dL Calcium 9.1 (8.4-10.2) mg/dL Total Bilirubin 0.30 (0.2-1.3) mg/dL AST 21 (14-36) U/L ALT 16 (0-35) U/L Alkaline Phosphatase 67 (38-126) U/L Serum Total Protein 6.8 (6.3-8.2) g/dL Albumin 3.9 (3.5-5.0) g/dL Urinalys Dipstick Clnc MAIN LAB Urine Color YELLOW (YELLOW) Urine Appearance CLEAR (CLEAR) Urine pH 6.0 (5-6) Ur Specific Elizabeth 1.025 (1.005-1.025) POC Urine Protein Conf NEGATIVE (Negative) Urine Ketones NEGATIVE (NEGATIVE) Urine Nitrite NEGATIVE (NEGATIVE) Urine Bilirubin NEGATIVE (NEGATIVE) Urine Urobilinogen 0.2 (0-1) mg/dL Urine Leukocytes NEGATIVE (NEGATIVE) Urine WBC (Auto) 3-5 (0-5) /HPF Urine RBC (Auto) 0-2 (0-2) /HPF U Epithel Cells (Auto) RARE (FEW) /HPF Urine Bacteria (Auto) RARE (NEGATIVE) /HPF Urine RBC TRACE-INTACT (0-5) Mynor/ul Urine Mucus (Auto) SLIGHT (NEGATIVE) /HPF Ur Culture Indicated? NO Urine Glucose NEGATIVE (NEGATIVE) mg/dL Salicylates < 1.0 L (2-20) mg/dL Urine Opiates Level NEGATIVE (NEGATIVE) Ur Methadone NEGATIVE (NEGATIVE) Acetaminophen < 10 L (10-30) ug/ml Urine Barbiturates NEGATIVE (NEGATIVE) Ur Phencyclidine (PCP) NEGATIVE (NEGATIVE) Urine Amphetamine NEGATIVE (NEGATIVE) U Benzodiazepine Level NEGATIVE (NEGATIVE) Urine Cocaine NEGATIVE (NEGATIVE) Urine Marijuana (THC) POSITIVE (NEGATIVE) Ethyl Alcohol < 10 (0-10) mg/dL 03/12/22 Range/Units 19:30 WBC 6.7 (4.0-10.5) x10^3/uL RBC 3.78 L (4.1-5.4) x10^6/uL Hgb 11.7 L (12.0-16.0) g/dL Hct 34.6 L (35-47) % MCV 91.5 (78-100) fL MCH 31.0 (26-32) pg MCHC 33.8 (32-36) g/dL RDW 11.8 (11.5-14.0) % Plt Count 236 (150-450) x10^3/uL MPV 9.4 (7.5-11.0) fL Gran % 49.7 (36.0-66.0) % Immature Gran % (Auto) 0.1 (0.00-0.4) % Nucleat RBC Rel Count 0.0 (0.00-0.1) % Eos # (Auto) 0.11 (0-0.5) x10^3/uL Immature Gran # (Auto) 0.01 (0.00-0.03) x10^3u/L Absolute Lymphs (auto) 2.61 (1.0-4.6) x10^3/uL Absolute Monos (auto) 0.63 (0.0-1.3) x10^3/uL Absolute Nucleated RBC 0.00 (0.00-0.01) x10^3u/L Lymphocytes % 39.1 (24.0-44.0) % Monocytes % 9.4 (0.0-12.0) % Eosinophils % 1.6 (0.00-5.0) % Basophils % 0.1 (0.0-0.4) % Absolute Granulocytes 3.30 (1.4-6.9) x10^3/uL Basophils # 0.01 (0-0.4) x10^3/uL Sodium (137-145) mmol/L Potassium (3.5-5.1) mmol/L Chloride (98-107) mmol/L Carbon Dioxide (22-30) mmol/L Anion Gap (5-15) MEQ/L BUN (7-17) mg/dL Creatinine (0.52-1.04) mg/dL Estimated GFR ML/MIN Glucose (74-106) mg/dL Calcium (8.4-10.2) mg/dL Total Bilirubin (0.2-1.3) mg/dL AST (14-36) U/L ALT (0-35) U/L Alkaline Phosphatase (38-126) U/L Serum Total Protein (6.3-8.2) g/dL Albumin (3.5-5.0) g/dL Urinalys Dipstick Clnc Urine Color (YELLOW) Urine Appearance (CLEAR) Urine pH (5-6) Ur Specific Elizabeth (1.005-1.025) POC Urine Protein Conf (Negative) Urine Ketones (NEGATIVE) Urine Nitrite (NEGATIVE) Urine Bilirubin (NEGATIVE) Urine Urobilinogen (0-1) mg/dL Urine Leukocytes (NEGATIVE) Urine WBC (Auto) (0-5) /HPF Urine RBC (Auto) (0-2) /HPF U Epithel Cells (Auto) (FEW) /HPF Urine Bacteria (Auto) (NEGATIVE) /HPF Urine RBC (0-5) Mynor/ul Urine Mucus (Auto) (NEGATIVE) /HPF Ur Culture Indicated? Urine Glucose (NEGATIVE) mg/dL Salicylates (2-20) mg/dL Urine Opiates Level (NEGATIVE) Ur Methadone (NEGATIVE) Acetaminophen (10-30) ug/ml Urine Barbiturates (NEGATIVE) Ur Phencyclidine (PCP) (NEGATIVE) Urine Amphetamine (NEGATIVE) U Benzodiazepine Level (NEGATIVE) Urine Cocaine (NEGATIVE) Urine Marijuana (THC) (NEGATIVE) Ethyl Alcohol (0-10) mg/dL - Progress Progress: improved Progress Note: 03/12/22 19:13 Medical decision making: nurse Harrington contacted poison control. The recommendation is to place an IV, perform an EKG, draw aspirin, acetaminophen CMP perform a urinalysis and urine drug triage. They also recommend observing the patient for approximately 6 to 8 hours. If the patient's agitation worsens may use benzodiazepines and even phenobarbital if necessary. 03/12/22 22:09 Patient is comfortable. Patient is hemodynamically stable. She denies suicidal or homicidal ideation or intent. We will discharge her to home at 10:45 PM as long as she remains hemodynamically stable. Counseled pt/family regarding: lab results, diagnosis, need for follow-up - Departure Departure Disposition: Home Clinical Impression: Accidental overdose Condition: Stable Critical Care Time: No Referrals: HEAVEN VENTURA MD [Primary Care Provider] - Follow up/PCP as directed Additional Instructions: Take all your medication as prescribed. Drink plenty of fluids. Avoid THC Gummies
[2022-03-12] MEDS ORDERED: Sodium Chloride 0.9% 1000 ML 1,000 ML IV SCH (19:00)
[2022-03-12] MEDS ORDERED: Sodium Chloride 0.9% 1000 ML 1,000 ML ONE (19:10)
[2022-03-12] MEDS ORDERED: Zofran 4 MG/2 ML VIAL ONE (19:10)
[2022-03-12] MEDS ORDERED: Ativan 2 MG/1 ML VIAL ONE (19:10)
[2022-03-12 19:34] LABS: Basophil (Absolute #) 0.01 x10^3/uL (0-0.4); Eosinophil % 1.6 % (0.00-5.0); Eosinophil (Absolute #) 0.11 x10^3/uL (0-0.5); Hematocrit 34.6 % (35-47); Hemoglobin 11.7 g/dL (12.0-16.0); Lymphocyte (Absolute #) 2.61 x10^3/uL (1.0-4.6); Lymphocytes % 39.1 % (24.0-44.0); Mean Cell Volume 91.5 fL (78-100); Mean Corpuscular Hgb Concent. 33.8 g/dL (32-36); Mean Platelet Volume 9.4 fL (7.5-11.0); Monocyte (Absolute #) 0.63 x10^3/uL (0.0-1.3); Monocytes % 9.4 % (0.0-12.0); Neutrophil % 49.7 % (36.0-66.0); Platelet Count 236 x10^3/uL (150-450); Red Blood Count 3.78 x10^6/uL (4.1-5.4); Red Cell Distribution Width 11.8 % (11.5-14.0); White Blood Count 6.7 x10^3/uL (4.0-10.5)
[2022-03-12 19:51] LABS: ACETAMINOPHEN < 10 ug/ml (10-30); ALBUMIN 3.9 g/dL (3.5-5.0); ALKALINE PHOSPHATASE 67 U/L (38-126); BLOOD UREA NITROGEN 14 mg/dL (7-17); CHLORIDE 105 mmol/L (98-107); Calcium 9.1 mg/dL (8.4-10.2); Carbon Dioxide 27 mmol/L (22-30); Creatinine 1 0.87 mg/dL (0.52-1.04); EST GLOMERULAR FILTRATION RATE > 60.0 ML/MIN; ETHYL ALCOHOL < 10 mg/dL (0-10); Glucose 149 mg/dL (74-106); Potassium 3.7 mmol/L (3.5-5.1); SALICYLATE < 1.0 mg/dL (2-20); SGOT/AST 21 U/L (14-36); SGPT/ALT 16 U/L (0-35); SODIUM 136 mmol/L (137-145); Total Protein 6.8 g/dL (6.3-8.2)
[2022-03-12 21:31] LABS: Appearance CLEAR (CLEAR); Bilirubin NEGATIVE (NEGATIVE); Dipstick done @ ? MAIN LAB; Glucose NEGATIVE (NEGATIVE); Ketones NEGATIVE (NEGATIVE); Nitrite NEGATIVE (NEGATIVE); Protein,Urine Dip NEGATIVE (Negative); RBC TRACE-INTACT Ery/ul (0-5); Specific Gravity 1.025 (1.005-1.025); Urobilinogen 0.2 mg/dL (0-1)
[2022-03-12 21:40] LABS: Bacteria RARE /HPF (NEGATIVE); Epithelial Cells RARE /HPF (FEW); Mucus SLIGHT /HPF (NEGATIVE); RBC 0-2 /HPF (0-2)
[2022-03-12 21:42] LABS: Urine Cultured Indicated? NO
[2022-03-12 21:46] LABS: Amphetamine,Urine NEGATIVE (NEGATIVE); Barbiturate,Urine NEGATIVE (NEGATIVE); Benzodiazepine,Urine NEGATIVE (NEGATIVE); Cocaine,Urine NEGATIVE (NEGATIVE); Methadone,Urine NEGATIVE (NEGATIVE); Opiate,Urine NEGATIVE (NEGATIVE); PCP,Urine NEGATIVE (NEGATIVE); THC,Urine POSITIVE (NEGATIVE)
[2022-03-12 22:50] VITALS: BP 103/55; PULSE 72; O2SAT 96
== END 2022-03-12 22:59 | disposition home or self-care (01) ==
LOC: ED 18:50
DX: T40.711A Poisoning by cannabis, accidental (unintentional), initial encounter (principal); R45.1 Restlessness and agitation; Z79.899 Other long term (current) drug therapy
CPT/HCPCS: 36000; 36415; 80053; 80307; 81015; 85025; 93005; 96374; 96375; 99284; G0480; P9612; J2060; J2405

== ENCOUNTER 2024-05-18 15:56 | Emergency (ER) | payer SELFPAY ==
[2024-05-18 16:08] VITALS: PULSE 60
[2024-05-18] MEDS ORDERED: Sodium Chloride 0.9% 1000 ML 1,000 ML ONE (16:18)
[2024-05-18] MEDS ORDERED: Zofran 4 MG/2 ML VIAL ONE (16:18)
[2024-05-18] MEDS ORDERED: TORAdol 30 mg Injection ONE (16:18)
[2024-05-18] MEDS ORDERED: MORPHINE SULFATE 4 MG INJ ONE (16:18)
[2024-05-18 16:21] LABS: Absolute Neutrophil Ct (ANC) 3.81 x10^3/uL (1.56-6.13); BASOPHIL % 0.2 % (0.1-1.2); Basophil (Absolute #) 0.02 x10^3/uL (0.01-0.08); Eosinophil % 0.9 % (0.7-5.8); Eosinophil (Absolute #) 0.08 x10^3/uL (0.04-0.36); Hemoglobin 11.9 g/dL (11.2-15.7); IMMATURE GRAN # 0.02 x10^3u/L (0.001-0.031); IMMATURE GRAN % 0.2 % (0.001-0.429); Lymphocyte (Absolute #) 3.97 x10^3/uL (1.18-3.74); Lymphocytes % 45.8 % (19.3-51.7); Mean Cell Volume 87.7 fL (79.4-94.8); Mean Corpuscular Hemoglobin 29.8 pg (25.6-32.2); Monocyte (Absolute #) 0.76 x10^3/uL (0.24-0.86); Monocytes % 8.8 % (4.7-12.5); Neutrophil % 44.1 % (34.0-71.1); Platelet Count 252 x10^3/uL (182-369); Red Blood Count 3.99 x10^6/uL (3.93-5.22); Red Cell Distribution Width 11.8 % (11.7-14.4); White Blood Count 8.7 x10^3/uL (3.98-10.04)
[2024-05-18] MEDS: Zofran 4 MG/2 ML VIAL IV ONE (16:21)
[2024-05-18] MEDS: TORAdol 30 mg Injection IV ONE (16:21)
[2024-05-18] MEDS: Sodium Chloride 0.9% 1000 ML 1,000 ML IV STA (16:21)
[2024-05-18] MEDS: MORPHINE SULFATE 4 MG INJ IV ONE (16:22)
--- NOTE | 2024-05-18 16:28 | ERPHSYRPT ---
- History of Present Illness Time Seen by Provider: 05/18/24 16:26 Historian: patient Exam Limitations: no limitations Patient Subjective Stated Complaint: pt c/o of left flank pain that radiates to the left lower quadrant Triage Nursing Assessment: Pt brought to the ER by a friend, verna rodriguez, rates pain as 7-8/10, pulses normal, skin n/w/d, left flank pain that radiates to the left lower quadrant, N&V, last intake 2 hours ago, last bm 10 minutes ago Physician History: Patient is 43-year-old female with significant past medical history of breast cancer started having a left side flank pain which was radiating to the left groin started approximately 4 to 5 hours ago associated with nausea and vomiting. Patient denies any blood in the stool or urine. Patient also denies any fever or chills. Patient did not have a similar symptoms in the past. Patient denies any other sick contacts at home. Timing/Duration: today Quality: cramping Abdominal Pain Onset Location: flank (left) Pain Radiation: LLQ Severity of Pain-Max: moderate Severity of Pain-Current: moderate Associated Symptoms: nausea Previous symptoms: no prior history Allergies/Adverse Reactions: No Known Drug Allergies Allergy (Verified 05/18/24 16:09) Home Medications: Escitalopram Oxalate [Lexapro] 10 mg PO DAILY 05/18/24 [History] Tamoxifen Citrate 20 mg PO DAILY 05/18/24 [History] Hx Tetanus, Diphtheria Vaccination/Date Given: Yes (2017) Hx Influenza Vaccination/Date Given: No Hx Pneumococcal Vaccination/Date Given: No Travel Risk - International Travel Have you traveled outside of the country in past 3 weeks: No - Emerging Infectious Disease Are you exhibiting symptoms associated with any current EIDs: Yes Symptoms: Abdominal Pain, Vomitting - Review of Systems Constitutional: No Fever, No Chills Eyes: No Symptoms Ears, Nose, & Throat: No Symptoms Respiratory: No Cough, No Dyspnea Cardiac: No Chest Pain, No Edema, No Syncope Abdominal/Gastrointestinal: No Abdominal Pain, No Nausea, No Vomiting, No Diarrhea Genitourinary Symptoms: Flank Pain, No Dysuria Musculoskeletal: No Back Pain, No Neck Pain Skin: No Rash Neurological: No Dizziness, No Focal Weakness, No Sensory Changes Psychological: No Symptoms Endocrine: No Symptoms All Other Systems: Reviewed and Negative - Past Medical History Pertinent Past Medical History: Yes Neurological History: No Pertinent History ENT History: Other Cardiac History: No Pertinent History Respiratory History: No Pertinent History Endocrine Medical History: No Pertinent History Musculoskeletal History: No Pertinent History GI Medical History: No Pertinent History History: No Pertinent History Psycho-Social History: No Pertinent History Female Reproductive Disorders: Breast Cancer - Past Surgical History Past Surgical History: Yes Neuro Surgical History: No Pertinent History Cardiac: No Pertinent History Respiratory: No Pertinent History Gastrointestinal: No Pertinent History Genitourinary: No Pertinent History Musculoskeletal: No Pertinent History Female Surgical History: Hysterectomy, Dilation & Curettage, Section, Mastectomy Other Surgical History: TONSILLECTOMY. BOTTOM DENTURES (TOOTH EXTRACTION) - Female History Hx Last Menstrual Period: NOW Hx Now: No (hysterectomy) - Social History Smoking Status: Never smoker Exposure to second hand smoke: No Drug Use: none Patient Lives Alone: No - Social Determinants of Health Will the patient participate in the screening: Yes Do you worry about a steady place to live?: No Do you have any problems with any of the following?: No known problems In the past 12 months,have you had to go without utilities?: No Transportation Issues: No Has anyone in your support network made you feel unsafe?: No Have you or anyone in your house had to go without enough: No - Nursing Vital Signs Nursing Vital Signs: Initial Vital Signs Pulse Rate 60 05/18/24 16:01 Blood Pressure 113/71 05/18/24 16:01 O2 Sat by Pulse Oximetry 100 05/18/24 16:01 Pain Scale Pain Intensity 7 - Physical Exam General Appearance: no apparent distress, alert Eye Exam: PERRL/EOMI, eyes nml inspection Ears, Nose, Throat Exam: normal ENT inspection, pharynx normal, moist mucous membranes Neck Exam: normal inspection, non-tender, supple, full range of motion Respiratory Exam: normal breath sounds, lungs clear, No respiratory distress Cardiovascular Exam: regular rate/rhythm, normal heart sounds Gastrointestinal/Abdomen Exam: soft, tenderness (Left CVA), No mass, No guarding, No rebound Back Exam: normal inspection, normal range of motion, No CVA tenderness, No vertebral tenderness Extremity Exam: normal inspection, normal range of motion, pelvis stable Neurologic Exam: alert, oriented x 3, cooperative, normal mood/affect, nml cerebellar function, sensation nml, No motor deficits Skin Exam: normal color, warm, dry SpO2: 99 - Course Nursing assessment & vital signs reviewed: Yes - CT Exams Abdomen/Pelvis CT Interpretation: Tele-radiologist Report Ordered Tests: Active Orders 24 hr Category Date Time Status ABDOMEN AND PELVIS W CONTRAST [CT] Stat Exams 05/18/24 16:14 Completed AMYLASE Stat Lab 05/18/24 16:05 Completed CBC W DIFF Stat Lab 05/18/24 16:05 Completed CMP Stat Lab 05/18/24 16:05 Completed LIPASE Stat Lab 05/18/24 16:05 Completed UA W/RFX UR CULTURE Stat Lab 05/18/24 16:13 Ordered Medication Summary Discontinued Medications Generic Name Dose Route Start Last Admin Trade Name Freq PRN Reason Stop Dose Admin Sodium Chloride 1,000 mls @ 999 mls/hr 05/18/24 16:13 05/18/24 17:34 Sodium Chloride 0.9% 1000 Ml IV 05/18/24 17:13 Infused .Q1H1M STA Infusion Sodium Chloride Confirm 05/18/24 16:18 Sodium Chloride 0.9% 1000 Ml Administered 05/18/24 16:19 Dose 1,000 mls @ ud .ROUTE .STK-MED ONE Ketorolac Tromethamine 30 mg 05/18/24 16:13 05/18/24 16:21 Ketorolac Tromethamine 30 Mg/Ml Inj IV 05/18/24 16:14 30 mg STAT ONE Administration Ketorolac Tromethamine Confirm 05/18/24 16:18 Ketorolac Tromethamine 30 Mg/Ml Inj Administered 05/18/24 16:19 Dose 30 mg .ROUTE .STK-MED ONE Morphine Sulfate 4 mg 05/18/24 16:13 05/18/24 16:22 Morphine Sulfate 4 Mg/Ml Injection IV 05/18/24 16:14 4 mg STAT ONE Administration Morphine Sulfate Confirm 05/18/24 16:18 Morphine Sulfate 4 Mg/Ml Injection Administered 05/18/24 16:19 Dose 4 mg .ROUTE .STK-MED ONE Ondansetron HCl 4 mg 05/18/24 16:13 05/18/24 16:21 Ondansetron Hcl 4 Mg/2 Ml Vial IV 05/18/24 16:14 4 mg STAT ONE Administration Ondansetron HCl Confirm 05/18/24 16:18 Ondansetron Hcl 4 Mg/2 Ml Vial Administered 05/18/24 16:19 Dose 4 mg .ROUTE .STK-MED ONE Lab/Rad Data: Laboratory Result Diagrams 05/18/24 16:05 05/18/24 16:05 Laboratory Results 05/18/24 05/18/24 Range/Units 16:05 16:05 WBC 8.7 (3.98-10.04) x10^3/uL RBC 3.99 (3.93-5.22) x10^6/uL Hgb 11.9 (11.2-15.7) g/dL Hct 35.0 (34.1-44.9) % MCV 87.7 (79.4-94.8) fL MCH 29.8 (25.6-32.2) pg MCHC 34.0 (32.2-35.5) g/dL RDW 11.8 (11.7-14.4) % Plt Count 252 (182-369) x10^3/uL MPV 9.0 L (9.4-12.3) fL Gran % 44.1 (34.0-71.1) % Immature Gran % (Auto) 0.2 (0.001-0.429) % Nucleat RBC Rel Count 0.0 (0.00-0.2) % Eos # (Auto) 0.08 (0.04-0.36) x10^3/uL Immature Gran # (Auto) 0.02 (0.001-0.031) x10^3u/L Absolute Lymphs (auto) 3.97 H (1.18-3.74) x10^3/uL Absolute Monos (auto) 0.76 (0.24-0.86) x10^3/uL Absolute Nucleated RBC 0.00 (0.00-0.012) x10^3u/L Lymphocytes % 45.8 (19.3-51.7) % Monocytes % 8.8 (4.7-12.5) % Eosinophils % 0.9 (0.7-5.8) % Basophils % 0.2 (0.1-1.2) % Absolute Granulocytes 3.81 (1.56-6.13) x10^3/uL Basophils # 0.02 (0.01-0.08) x10^3/uL Sodium 136 (135-145) mmol/L Potassium 3.7 (3.5-5.1) mmol/L Chloride 107 (98-107) mmol/L Carbon Dioxide 23 (22-30) mmol/L Anion Gap 10.1 (5-15) MEQ/L BUN 23 H (7-17) mg/dL Creatinine 0.96 (0.52-1.04) mg/dL Estimated GFR 75.8 ML/MIN Glucose 122 H (74-106) mg/dL Calcium 9.5 (8.4-10.2) mg/dL Total Bilirubin 0.40 (0.2-1.3) mg/dL AST 35 (14-36) U/L ALT 21 (0-35) U/L Alkaline Phosphatase 61 (38-126) U/L Serum Total Protein 7.5 (6.3-8.2) g/dL Albumin 4.5 (3.5-5.0) g/dL Amylase 73 (30-110) U/L Lipase 137 (23-300) U/L CLINICAL HISTORY: flank pain COMPARISON: None. TECHNIQUE: A thin axial CT scan of the abdomen and pelvis (CT urogram) was performed with the administration of intravenous contrast, A Delayed post-contrast scan was performed. 80cc of isovue 370 was administered intravenously. Sagittal and coronal reconstructions were obtained. One of the following dose reduction techniques was utilized for this exam: Automated exposure control, adjustment of the mA and/or kV according to patient size, and use of iterative reconstruction. FINDINGS: Kidneys: Two small 2mm non-obstructive stones were noted in the lower calyx of the right kidney. Normal size, shape, and position of both kidneys. No renal masses, cysts, or calculi in the left kidney. Normal enhancement pattern in the corticomedullary and excretory phases. No evidence of hydronephrosis or scarring. Ureters: Mild prominent left ureter in its whole extent Ureters are normal in caliber and course with a tiny 2mm stone at the left v esicoureteric junction. No evidence of right ureteral stones or strictures. PatientID: [id number] Patient Name: LORIE CLARK Exam Date: 05/18/2024 Procedure: ABDOMEN AND PELVIS W CONTRAST page 1 of 3 Normal contrast excretion bilaterally. Bladder: Partially filled however it is of normal appearance and normal wall thickness. No intraluminal masses or diverticula. The bladder wall enhances normally post-contrast. The uterus is not visualized, likely surgically removed. No adnexal mass Adrenal Glands: Normal size and morphology of both adrenal glands. No adrenal masses or abnormalities. Liver: Normal size and echotexture. No focal hepatic lesions. Homogeneous enhancement post-contrast. Gallbladder and Biliary System: Gallbladder is normal, with no stones or wall thickening. Bile ducts are not dilated. Pancreas: Normal in size and contour. No masses or cystic lesions. Homogeneous enhancement post-contrast. Spleen: Normal in size and appearance. No focal lesions. Small calcified density in the spleen representing calcified granuloma Bowel: Normal appearance of the visualized bowel loops. No evidence of obstruction or masses. Vascular Structures: The abdominal aorta and major branches are normal in caliber. No aneurysm, dissection, or significant atherosclerosis. Normal enhancement post-contrast. Lymph Nodes: No pathologically enlarged lymph nodes in the abdomen or pelvis. Bones: No lytic or sclerotic lesions. Normal alignment and bone density. No evidence of fractures. The lower lung showed a 4mm small calcified granuloma in the left lower lobe. IMPRESSION: 1. Two small 2mm nonobstructive stones were noted in the lower calyx of the right kidney. 2. Mild left hydroureteronephrosis. secondary to a Small 2 mm stone at the left vesicoureteric junction causing left obstructive uropathy. 3. Small fat-containing umbilical hernia. - Progress Progress: improved Counseled pt/family regarding: lab results, diagnosis, need for follow-up, rad results Medical Desision Making - Diagnostic Testing Diagnostic test were ordered, analyzed, and reviewed by me: Yes Radiological Interpretation: Teleradiologist Report - Risk of complications Low Risk: Low risk of morbidity from additional dx testing or treatment The pt has a mod risk of morbidity or mortality based on: Need for minor surgical intervention in patient with know risk factors - Departure Departure Disposition: Home Clinical Impression: Ureteral calculus, left Condition: Stable Critical Care Time: No Referrals: HEAVEN VENTURA MD [Primary Care Provider] - Follow up/PCP as directed Instructions: Kidney Stones (DC), Flank Pain Additional Instructions: Discharge/Care Plan LORIE CLARK was seen on 05/18/24 in the Emergency Room. The patient was counseled regarding Diagnosis,Lab results, Imaging studies, need for follow up and when to return to the Emergency Room. Prescriptions given: Discharge Note I have spoken with the patient and/or caregivers. I have explained the patient's condition, diagnosis and treatment plan based on the information available to me at this time. I have answered the patient's and/or caregiver's questions and addressed any concerns. The patient and/or caregivers have as good understanding of the patient's diagnosis, condition and treatment plan as can be expected at this point. The vital signs have been stable. The patient's condition is stable and appropriate for discharge from the emergency department. The patient will pursue further outpatient evaluation with the primary care physician or other designated or consulting physician as outlined in the discharge instructions. The patient and/or caregivers are agreeable to this plan of care and follow-up instructions have been explained in detail. The patient and/or caregivers have received these instruction. The patient/and or caregivers are aware that any significant change in condition or worsening of symptoms should prompt an immediate return to this or the closest emergency department or call 911. LORIE CLARK was seen on 05/18/24 n the Emergency Room. At that time you were treated for an emergent condition, during your visit Laboratory, Radiology and/or other procedures may have been ordered. It is very important that you follow-up with your Primary Care Physician HEAVEN VENTURA within the next 24- 48 hours to review your Emergency Room visit and the final results of testing that was ordered. Some test results such as Urine Cultures, Blood Cultures, and other cultures if ordered will not be finalized for 24-48 hours. If you do not have a Primary Care Provider please call the medical records department at [phone] ext [phone] to obtain a copy of your results or you may sign into our patient portal to obtain these results by visiting us [email or web address] and completing the following steps: 1. Click on the Patient Portal link 2. Click the Patient Self Enrollment Link to complete the enrollment form and entering your 3. Once the enrollment form is completed you will receive an email with a temporary ID and password at the email address you provided. 4. Next choose a user name and password. Your user name must be at least 4 characters long and your password must be at least 4 characters long. 5. Choose a security question from the list and provide your answer to the question. If you already have signed into the Health Portal you may access your Health Care Information 26/12 by the following steps: 1. Login to our website @ [email or web address] 2. Enter your original user name and password. FAQS The [facility] Health Portal is an online tool that contains your Lab Results, Radiology Reports, Visit History, Discharge Instructions and Health Summary Lab and Radiology Results will not be available for 72 hours on the portal. The Portal is a secure site, passwords are encryted and URLs are re-written so they cannot be copied and pasted. You and authorized family members are the only ones who can access your Portal. Also there is a timeout feature that protects your information if you leave the Portal page open. If you have technical difficulty please use the Contact Us link on the page this will allow you to submit any questions you have regarding the Portal or you may contact the Medical Record Department at [phone]. Prescriptions: Tamsulosin HCl 0.4 mg [Flomax 0.4 MG] 0.4 mg PO DAILY #30 cap Ketorolac Trometh 10 mg Tab [TORAdol 10 MG TABLET] 10 mg PO QID #20 tablet
[2024-05-18 16:33] LABS: ALBUMIN 4.5 g/dL (3.5-5.0); ANION GAP 10.1 MEQ/L (5-15); BILIRUBIN,TOTAL 0.4 mg/dL (0.2-1.3); Calcium 9.5 mg/dL (8.4-10.2); Creatinine 1 0.96 mg/dL (0.52-1.04); EST GLOMERULAR FILTRATION RATE 75.8 ML/MIN; Potassium 3.7 mmol/L (3.5-5.1); Total Protein 7.5 g/dL (6.3-8.2)
--- NOTE | 2024-05-18 18:01 | XRAY ---
CLINICAL HISTORY: flank pain COMPARISON: None. TECHNIQUE: A thin axial CT scan of the abdomen and pelvis (CT urogram) was performed with the administration of intravenous contrast, A Delayed post-contrast scan was performed. 80cc of isovue 370 was administered intravenously. Sagittal and coronal reconstructions were obtained. One of the following dose reduction techniques was utilized for this exam: Automated exposure control, adjustment of the mA and/or kV according to patient size, and use of iterative reconstruction. FINDINGS: Kidneys: Two small 2mm non-obstructive stones were noted in the lower calyx of the right kidney. Normal size, shape, and position of both kidneys. No renal masses, cysts, or calculi in the left kidney. Normal enhancement pattern in the corticomedullary and excretory phases. No evidence of hydronephrosis or scarring. Ureters: Mild prominent left ureter in its whole extent Ureters are normal in caliber and course with a tiny 2mm stone at the left vesicoureteric junction. No evidence of right ureteral stones or strictures. Normal contrast excretion bilaterally. Bladder: Partially filled however it is of normal appearance and normal wall thickness. No intraluminal masses or diverticula. The bladder wall enhances normally post-contrast. The uterus is not visualized, likely surgically removed. No adnexal mass Adrenal Glands: Normal size and morphology of both adrenal glands. No adrenal masses or abnormalities. Liver: Normal size and echotexture. No focal hepatic lesions. Homogeneous enhancement post-contrast. Gallbladder and Biliary System: Gallbladder is normal, with no stones or wall thickening. Bile ducts are not dilated. Pancreas: Normal in size and contour. No masses or cystic lesions. Homogeneous enhancement post-contrast. Spleen: Normal in size and appearance. No focal lesions. Small calcified density in the spleen representing calcified granuloma Bowel: Normal appearance of the visualized bowel loops. No evidence of obstruction or masses. Vascular Structures: The abdominal aorta and major branches are normal in caliber. No aneurysm, dissection, or significant atherosclerosis. Normal enhancement post-contrast. Lymph Nodes: No pathologically enlarged lymph nodes in the abdomen or pelvis. Bones: No lytic or sclerotic lesions. Normal alignment and bone density. No evidence of fractures. The lower lung showed a 4mm small calcified granuloma in the left lower lobe. IMPRESSION: 1. Two small 2mm nonobstructive stones were noted in the lower calyx of the right kidney. 2. Mild left hydroureteronephrosis. secondary to a Small 2 mm stone at the left vesicoureteric junction causing left obstructive uropathy. 3. Small fat-containing umbilical hernia. [facility] ER was called at [phone] at 4:53 PM [employer], 05/18/2024, and DAISY Harrington was informed regarding the presence of Significant Medical Findings in the report. Electronically Signed by: Tono Negron MD. (05/18/2024 17:57:19 EST)
[2024-05-18 18:06] VITALS: O2SAT 99
[2024-05-18 18:11] VITALS: BP 102/57
[2024-05-18] MEDS ORDERED: Flomax 0.4 MG ONE (18:15)
[2024-05-18] MEDS: Flomax 0.4 MG PO STA (18:16)
== END 2024-05-18 18:25 | disposition home or self-care (01) ==
LOC: ED 15:56
DX: N20.1 Calculus of ureter (principal); R10.32 Left lower quadrant pain; Z85.3 Personal history of malignant neoplasm of breast
CPT/HCPCS: 36415; 74177; 80053; 82150; 83690; 85025; 96360; 96374; 96375; 99284; J1885; J2270; J2405; Q9967; A9270-GY